=== PATIENT | male | born 1975 | race Caucasian/White ===

== ENCOUNTER 2021-07-12 17:05 | Emergency (ER) | payer MEDICAID ==
[2021-07-12] MEDS ORDERED: Sodium Chloride 0.9% 10 ML Syringe FLUSH PRN (17:34)
== END 2021-07-12 17:46 | disposition left against medical advice (07) ==
LOC: JD.ED 17:05
DX: L02.416 Cutaneous abscess of left lower limb (principal); E10.8 Type 1 diabetes mellitus with unspecified complications; Z79.4 Long term (current) use of insulin; Z79.899 Other long term (current) drug therapy
CPT/HCPCS: 99283; 99285

== ENCOUNTER 2021-11-18 14:02 | Emergency (ER) | payer MEDICAID ==
[2021-11-18] MEDS ORDERED: Sodium Chloride 0.9% 10 ML Syringe FLUSH PRN ×2 (14:40→14:44)
[2021-11-18] MEDS ORDERED: Insulin Regular, Human 100 Units/ML 3 ML Vial IVPUSH ONE ×2 (15:11→16:29)
[2021-11-18] MEDS ORDERED: Sodium Chloride 0.9% 1,000 ML IV SCH (15:15)
[2021-11-18] MEDS ORDERED: cefTRIAXone 2 GM in Sodium Chloride 0.9% 100 ML IV ONE (16:31)
[2021-11-18] MEDS ORDERED: Doxycycline Monohydrate 50 MG Tab PO ONE (16:32)
[2021-11-18 16:52] LABS: HEMOGLOBIN A1C >14.0 %
[2021-11-18] MEDS ORDERED: Doxycycline Monohydrate 100 MG Cap ONE (16:56)
== END 2021-11-18 17:55 | disposition home or self-care (01) ==
LOC: JD.ED 14:02
DX: E10.52 Type 1 diabetes mellitus with diabetic peripheral angiopathy with gangrene (principal); I96 Gangrene, not elsewhere classified; E10.65 Type 1 diabetes mellitus with hyperglycemia; L03.115 Cellulitis of right lower limb; F17.210 Nicotine dependence, cigarettes, uncomplicated; Z79.899 Other long term (current) drug therapy
CPT/HCPCS: 36415; 73660; 80053; 82947; 83036; 85025; 86140; 87070; 87075; 87205; 96361; 96365; 99285; A9270; J0696; J1815; J3490; J7030

== ENCOUNTER 2021-12-16 04:14 | Emergency (ER) | payer MEDICAID ==
[2021-12-16 06:42] LABS: CORONAVIRUS COVID-19 NAA NEGATIVE (NEGATIVE)
[2021-12-16] MEDS ORDERED: Clindamycin Phosphate in D5W 900 MG in Premix Bag 1 BAG IV SCH ×2 (07:45)
[2021-12-16] MEDS ORDERED: Ertapenem 1 GM in Sodium Chloride 0.9% 50 ML IV SCH (07:45)
[2021-12-16] MEDS ORDERED: HYDROmorphone 0.5 MG/0.5 ML Syringe IVPUSH ONE (07:49)
[2021-12-16 08:05] LABS: ESTIMATED GFR 107 mL/min (>60)
[2021-12-16] MEDS ORDERED: VANCOmycin 1.25 GM/250 ML 1.25 GM in Premix Bag 1 BAG IV ONE (08:30)
[2021-12-16] MEDS ORDERED: Sodium Chloride 0.9% 10 ML Syringe FLUSH PRN (08:34)
[2021-12-16] MEDS ORDERED: Insulin Regular, Human 100 Units/ML 3 ML Vial SUBCUT STA (08:58)
[2021-12-16] MEDS ORDERED: Sodium Chloride 0.9% 1,000 ML IV ONE (09:28)
== END 2021-12-16 10:15 ==
LOC: JD.ED 04:14
DX: M84.477A Pathological fracture, right toe(s), initial encounter for fracture (principal); L08.9 Local infection of the skin and subcutaneous tissue, unspecified; E11.65 Type 2 diabetes mellitus with hyperglycemia; F17.210 Nicotine dependence, cigarettes, uncomplicated; Z20.822 Contact with and (suspected) exposure to COVID-19; Z79.899 Other long term (current) drug therapy; Z79.4 Long term (current) use of insulin; Z79.84 Long term (current) use of oral hypoglycemic drugs
CPT/HCPCS: 0241U; 36415; 73620; 80053; 83605; 84484; 85025; 87040; 93005; 96365; 96367; 96375; 99285; J1170; J1335; J1815; J3370; J3490; J7030